=== PATIENT | female | born 1985 | race Caucasian/White ===

== ENCOUNTER 2021-07-24 15:48 | Emergency (ER) | payer OTHER ==
[~2021-07-24] VITALS: Ht 154.9 cm; Wt 75.0 kg
[2021-07-24] MEDS ORDERED: IBUPROFEN 600MG TABLET PO ONE (17:15)
[2021-07-24 17:24] VITALS: BP 117/75
== END 2021-07-24 17:25 | disposition home or self-care (01) ==
LOC: ER 15:48
DX: H92.02 Otalgia, left ear (principal); R42 Dizziness and giddiness
CPT/HCPCS: 93005; 99283